=== PATIENT | male | born 1965 | race Caucasian/White ===

== ENCOUNTER 2021-08-15 12:41 | Emergency (ER) | payer MEDICAID ==
--- NOTE | 2021-08-15 13:06 | EDM.PDOC ---
ED HPI GENERAL MEDICAL PROBLEM - General Chief Complaint: Skin Complaint Stated Complaint: RECURRING CELLULITIS Time Seen by Provider: 08/15/21 12:50 Source of Information: Reports: Patient, RN Notes Reviewed History Limitations: Reports: No Limitations - History of Present Illness INITIAL COMMENTS - FREE TEXT/NARRATIVE: This patient presents to the emergency department for evaluation redness. He has a history of diabetes and has had problems with foot ulcers in the past. He states his sister did some filing of a callus on his left foot earlier this week and he now has an open wound on his foot. He noticed some increased redness of his foot and ankle yesterday but today the redness has extended up to his knee. His lower extremities are quite swollen and left is notably warmer than the right. He does have an open wound on the outer aspect of the fifth tarsal. He has not had a fever. He denies other symptoms or concerns. - Related Data Allergies Allergy/AdvReac Type Severity Reaction Status Date / Time clindamycin Allergy Hives Verified 08/15/21 13:00 Home Meds: Home Meds Doxycycline [Vibra-Tabs] 100 mg PO Q12HR 10 Days #20 tab 08/15/21 [Rx] cephALEXin [Keflex] 500 mg PO Q8H 10 Days #30 cap 08/15/21 [Rx] ED ROS GENERAL - Review of Systems Review Of Systems: Comprehensive ROS is negative, except as noted in HPI. ED EXAM, SKIN/RASH Exam: See Below Exam Limited By: No Limitations General Appearance: Alert, No Apparent Distress Eye Exam: Bilateral Eye: PERRL Ears: Normal External Exam Throat/Mouth: Normal Inspection Head: Atraumatic, Normocephalic Neck: Normal Inspection Respiratory/Chest: No Respiratory Distress, Lungs Clear, Normal Breath Sounds, No Accessory Muscle Use Cardiovascular: Regular Rate, Rhythm Peripheral Pulses: 2+: Dorsalis Pedis (L), 3+: Dorsalis Pedis (R) Extremities: Pedal Edema, Leg Pain, Increased Warmth, Redness Neurological: Alert, Oriented Psychiatric: Normal Affect Skin: Warm, Dry, Wound/Incision (Open wound overlying fifth tarsal left foot.) Course - Vital Signs Last Recorded V/S: Last Vital Signs Temp 36.1 C 08/15/21 12:50 Pulse 84 08/15/21 12:50 Resp 18 08/15/21 12:50 BP 147/79 H 12/30/21 12:50 Pulse Ox 97 08/15/21 12:50 - Re-Assessments/Exams Free Text/Narrative Re-Assessment/Exam: This patient presents for evaluation of leg redness and swelling. History and clinical findings are most consistent with cellulitis. There does not appear to be any complication of cellulitis including necrotizing fasciitis, lymphangitis, lymphadenitis, abscess, osteomyelitis, or sepsis. The patient is not immunocompromised. He has not had a fever. The plan is for supportive outpatient management including antibiotics. He will be double covered with Keflex and doxycycline. He should follow-up with his primary care provider next week or return to the emergency department over the weekend should he get worse in any way. The patient was stable at the time of discharge. 08/15/21 13:14 Departure - Departure Time of Disposition: 13:05 Disposition: Home, Self-Care 01 Condition: Fair Clinical Impression: Cellulitis - Discharge Information *PRESCRIPTION DRUG MONITORING PROGRAM REVIEWED*: Not Applicable *COPY OF PRESCRIPTION DRUG MONITORING REPORT IN PATIENT ARACELIS: Not Applicable Prescriptions: cephALEXin [Keflex] 500 mg PO Q8H 10 Days #30 cap Doxycycline [Vibra-Tabs] 100 mg PO Q12HR 10 Days #20 tab Instructions: Cellulitis, Adult, [id number] Referrals: PCP,None [Primary Care Provider] - Forms: ED Department Discharge Sepsis Event Note (ED) - Focused Exam Vital Signs: Vital Signs Temp Pulse Resp BP Pulse Ox 08/15/21 12:50 36.1 C 84 18 147/79 H 97
== END 2021-08-15 13:25 | disposition home or self-care (01) ==
LOC: LB.ED 12:41
DX: L03.116 Cellulitis of left lower limb (principal); Z88.0 Allergy status to penicillin
CPT/HCPCS: 99283